=== PATIENT | male | born 1950 | race Caucasian/White ===

== ENCOUNTER 2020-06-08 08:26 | Outpatient (RCR) | payer MEDICARE, OTHER, SELFPAY | END 2020-06-08 23:59 | LOC: IMMUN 08:26 | PROVIDERS: PCP Family Medicine; Visit Provider Family Medicine | DX: Z23 Encounter for immunization (principal) | CPT/HCPCS: 0011A; 0012A ==

== ENCOUNTER 2022-11-09 07:41 | Emergency (ER) | payer MEDICARE, OTHER, SELFPAY ==
[2022-11-09 07:42] VITALS: BP 155/78; PULSE 54; RESP 14; TEMP 36.3; O2SAT 100
--- NOTE | 2022-11-09 08:10 | EKG12_ITS ---
Test Reason : Blood Pressure : / mmHG Vent. Rate : 049 BPM Atrial Rate : 049 BPM P-R Int : 162 ms QRS Dur : 098 ms QT Int : 440 ms P-R-T Axes : 048 -17 011 degrees QTc Int : 397 ms Sinus bradycardia Otherwise normal ECG No previous ECGs available Confirmed by ANJU CHOWDHURY, ELIER ([id number]), avid editor COLEEN CONTE ([id number]) on 11/14/2022 1:35:23 PM Referred By: AARON Confirmed By:ELIER RENE MD
[2022-11-09] MEDS: LORazepam 2 MG/ML Syringe 0.5 MG IV (08:38)
[2022-11-09 08:41] LABS: Basophil# 0.05 X10^3/uL; Basophil% 0.9 % (0-1); Eosinophil# 0.07 X10^3/uL; Eosinophils% 1.2 % (0-5); Hematocrit 43.7 % (40-54); Hemoglobin 14.9 g/dL (13.0-16.5); Lymphocyte % 21.2 % (19-41); Mean Corp Hgb Conc 34.1 g/dL (32-36); Mean Corpuscular Hgb 30.1 pg (27.0-32.0); Mean Corpuscular Volume 88.3 fL (80-94); Mean Platelet Vol. 9.6 fl (6.2-12.0); Monocyte# 0.33 X10^3/uL; Monocyte% 5.8 % (0-10); NRBC Flagged by Analyzer 0 % (0-5); Neutrophil # 3.99 X10^3/uL (2.7-7.7); Neutrophil % 70.5 % (47-70); Platelet Count 184 K/mm3 (150-450); RBC Distribution Width CV 11.6 % (11.6-14.6); RBC Distribution Width SD 37.1 fl (35.1-43.9); Red Blood Count 4.95 M/mm3 (4.6-6.2); White Blood Count 5.7 K/mm3 (4.4-11.0)
[2022-11-09 08:45] LABS: Anion Gap 2 (5-15); BUN 11 mg/dL (7-18); Calcium,Total 8.7 mg/dL (8.5-10.1); Chloride 109 mmol/L (98-107); Creatinine, Serum 0.84 mg/dL (0.70-1.30); EST Glomerular Filtration Rate 94 mL/min (>60); Est Glom Filt Rate - Afr Amer 114 mL/min (>60); Glucose 152 mg/dL (74-106); Potassium 3.9 mmol/L (3.5-5.1); Sodium Level 138 mmol/L (136-145)
--- NOTE | 2022-11-09 08:56 | EX.ED.DYSGE1 ---
HPI History of Present Illness Chief Complaint: Dizziness Informant: patient Narrative Narrative: Patient is a healthy 72-year-old male with history of hyperlipidemia presenting with room spinning sensation. Patient states he woke up around 445 this morning when he opened his eyes and look like the ceiling was spinning. He states he had his normal bowel movements this morning but every time he moves his head especially he gets dizzy again. He states overall he just feels weak. His was worried that maybe he was hypoglycemic so she had him eat a bagel however he did not improve. He also seems bit more hard of hearing today per the . He notes his right ear is a little itchy but he does have a history of dry ears. Denies any recent URI symptoms. Said some mild nausea especially in the car here today but denies any vomiting. Denies any renal disease. Denies any acute vision change. Denies any chest pain or difficulty breathing. Denies any focal numbness or tingling. No speech changes. No other complaints or concerns at this time. No report of any recent head injuries. PFSH PFS Medical History no medical history Home Medications meclizine 25 mg tablet 25 mg PO 4X/DAY PRN PRN Dizziness #20 tabs 11/09/22 [Rx Last Taken Unknown] prednisone 20 mg tablet 40 mg (2 x 20 mg) PO DAILY #8 tabs 11/09/22 [Rx Last Taken Unknown] Allergy/AdvReac Type Severity Reaction Status Date / Time No Known Allergies Allergy Verified 11/09/22 07:43 Social History Smoking Status: Never smoker ROS ROS ED Constitutional Constitutional ED: Denies chills or fever(s) Eyes Eyes: Denies blurry vision or change in vision ENT ENT ED: Reports other Details: hearing change ; Denies ear pain, rhinorrhea or sore throat Cardiovascular Cardiovascular: Denies chest pain or palpitations Respiratory/Chest Respiratory/Chest: Denies cough or dyspnea Gastrointestinal Gastrointestinal: Reports nausea; Denies abdominal pain, constipation, diarrhea or vomiting Genitourinary Genitourinary ED: Denies dysuria or hematuria Musculoskeletal Musculoskeletal: Denies arthralgias, myalgias or neck pain Integumentary Denies rash Neurologic Neurologic: Reports weakness; Denies headache(s) or paresthesias Psychiatric Psychiatric: Denies anxiety Hematologic/Lymphatic Hematologic/Lymphatic: Denies easy bleeding or easy bruising EXAM Physical Exam Const Vital Signs: 11/09/22 07:42 Temperature 97.3 F L Temperature Source Temporal Pulse Rate 54 L Respiratory Rate 14 Blood Pressure 155/78 H Blood Pressure Mean 103 Pulse Ox 100 Oxygen Delivery Method Room Air Positive well nourished and well developed General Appearance ED: well developed and NAD HEENT Reports TM's clear and moist mucous membranes HEENT Narrative: Subjective decrease in hearing on the left with very soft sounds however is able to hear globes rubbing together next to his ears bilaterally. Negative for trauma Tympanic Membrane ED: Yes TM's clear Eyes PERRL and EOMs intact bilaterally Eyes Narrative: fatiguing horizontal nystagmus with leftward movement reproduced on leftward [place]-Hallpike. No significant nystagmus with range of motion of the eyes. Neck supple and no JVD Chest Wall inspection of chest normal and palpation of chest normal Resp normal respiratory effort and clear to auscultation bilaterally Auscultation: Negative for wheezes Cardio regular rhythm and no murmurs Rate: bradycardia GI normal to inspection, nondistended, normoactive bowel sounds, non-tender and non-distended Back/Spine no CVA tenderness Extremity normal to inspection Extremity Narrative: 2+ radial and DP pulses General Extremety ED: Negative for edema or tenderness General Extremity: Negative for edema Neuro oriented x3, CN's II-XII intact bilaterally and no sensory deficits noted Neuro Narrative: NIH equals 0 Sensorium / Orientation: alert Motor Exam: strength 5/5 throughout; Negative for general weakness Psych mental status grossly normal Skin no rashes or lesions noted and no wounds MDM MDM MDM Narrative Medical decision making narrative: Patient is evaluated for sudden onset of dizziness. Also has a feeling of hearing loss. On exam he has a positive Vero-Hallpike maneuver on the left with no truncal ataxia, abnormal coordination or other signs of a central process. He does have some slight subjective hearing loss on the left. This is all consistent with labyrinthitis. Patient states he globally just feels really weak so I will check some labs including a CBC and a BMP. He is mildly bradycardic and EKG is obtained. EKG shows sinus bradycardia and he is actually hypertensive. He does not have an block and I do not think his bradycardia is associated with his symptoms today. I do not think that there is a central process going on I do not think he requires neuroimaging. Will be started on a burst of steroids (patient denies any history of hyperglycemia/diabetes). On reevaluation after receiving 0.5 mg IV lorazepam he states he is feeling much better. Will be discharged home on a course of meclizine for symptom control. Is given referral for ENT. He verbalizes agreement understand this plan. Discharged home in stable and improved condition. Is given return precautions. Lab Data Attestation: I reviewed the patient's lab results. Labs: Laboratory Results - last 24 hr 11/09/22 11/09/22 11/09/22 08:20 08:20 08:36 WBC Cancelled 5.7 Corrected WBC Cancelled RBC Cancelled 4.95 Hgb Cancelled 14.9 Hct Cancelled 43.7 MCV Cancelled 88.3 MCH Cancelled 30.1 MCHC Cancelled 34.1 RDW Std Deviation Cancelled 37.1 RDW Coeff of Alexander Cancelled 11.6 Plt Count Cancelled 184 MPV Cancelled 9.6 Immature Gran % (Auto) Cancelled 0.400 Neut % (Auto) Cancelled 70.5 H Lymph % (Auto) Cancelled 21.2 [place] % (Auto) Cancelled 5.8 Eos % (Auto) Cancelled 1.2 Baso % (Auto) Cancelled 0.9 Absolute Neuts (auto) Cancelled 4.0 Absolute Lymphs (auto) Cancelled 1.20 Total Counted Cancelled Neutrophils % (Manual) Cancelled Band Neutrophils % Cancelled Lymphocytes % (Manual) Cancelled Monocytes % (Manual) Cancelled Eosinophils % (Manual) Cancelled Basophils % (Manual) Cancelled Metamyelocytes % Cancelled Myelocytes % Cancelled Promyelocytes % Cancelled Blast Cells % Cancelled Plasma Cell % (Manual) Cancelled Other Cells % Cancelled Nucleated RBC % Cancelled 0 Nucleated RBCs/100 WBC Cancelled Differential Comment Cancelled Diff Path Review Cancelled Hypersegmented Neuts Cancelled Atypical Lymphocytes Cancelled Reactive Lymphocytes Cancelled Smudge Cells Cancelled Toxic Granulation Cancelled Toxic Vacuolation Cancelled Dohle Bodies Cancelled Matthew Rods Cancelled Platelet Estimate Cancelled Plt Morphology Comment Cancelled RBC Morphology Cancelled Cancelled Polychromasia Cancelled Hypochromasia Cancelled Poikilocytosis Cancelled Basophilic Stippling Cancelled Anisocytosis Cancelled Microcytosis Cancelled Macrocytosis Cancelled Spherocytes Cancelled Sickle Cells Cancelled Target Cells Cancelled Tear Drop Cells Cancelled Ovalocytes Cancelled Stomatocytes Cancelled [place] Bodies Cancelled Perla Cells Cancelled Bite Cells Cancelled Crenated Cell Cancelled Acanthocytes (Spur) Cancelled Rouleaux Cancelled Schistocytes Cancelled Sodium 138 Potassium 3.9 Chloride 109 H Carbon Dioxide 27.0 Anion Gap 2 L BUN 11 Creatinine 0.84 Est GFR (MDRD) Af Amer 114 Est GFR (MDRD) Non-Af 94 BUN/Creatinine Ratio 13.0 Glucose 152 H Calcium 8.7 Rhythm Strip Rhythm Strip: Sinus Rhythm Rate: 49 Ectopy: None EKG Initial EKG: Attestation: I personally reviewed and interpreted this EKG as follows: Interpretation: Sinus Bradycardia Comments: Sinus bradycardia rate of 49 bpm Normal axis Normal intervals Normal ST segments Discharge Plan Triage Chief Complaint: Dizziness ED Provider: Dory Eubanks Dx/Rx/DC Orders Clinical Impression: Acute labyrinthitis Instructions: ED Labyrinthitis Prescriptions: New prednisone 20 mg tablet 40 mg PO DAILY Qty: 8 0RF meclizine 25 mg tablet 25 mg PO 4X/DAY PRN PRN (Reason: Dizziness) Qty: 20 0RF Primary Care Provider: Mitch Cheung Referrals: Mitch Cheung MD [Primary Care Provider] - Brian Camilo MD [Med Staff - Active Staff] - As soon as possible
[2022-11-09] MEDS: predniSONE 20 MG Tablet 60 MG PO (10:14)
[2022-11-09 10:15] VITALS: BP 177/81; PULSE 56; RESP 16; O2SAT 97
== END 2022-11-09 10:21 | disposition home or self-care (01) ==
PROVIDERS: Emergency Provider Emergency Medicine; PCP Family Medicine; Visit Provider Emergency Medicine
DX: H83.02 Labyrinthitis, left ear (principal)
CPT/HCPCS: 80048; 85025; 93005; 96374; 99284; A4216